=== PATIENT | female | born 1960 | race African-American/Black ===

== ENCOUNTER 2017-09-09 20:01 | Inpatient (IN) | payer OTHER ==
[~2017-09-09] VITALS: Ht 182.9 cm; Wt 60.0 kg
--- NOTE | ~2017-09-09 | H ---
[facility] [place] [address] HISTORY AND PHYSICAL Name: BLANE FUENTES Ko Room #: 437-P ADM IN M.R.#: [id number] Admission: 09/09/17 Attend Phys: Ko Ann Discharge: Date of : 58 Report #: [id number] THIS REPORT FOR: //name// CC: Olivier Urias [facility] physician/PCP DATE OF SERVICE: 09/10/2017 CHIEF COMPLAINT: Abdominal pain. HISTORY OF PRESENT ILLNESS: The patient is a 57-year-old female who is readmitted through the emergency room from [facility] facility for evaluation of right abdominal pain. She was admitted in early August with abdominal pain and was diagnosed with a small bowel obstruction. She had surgical treatment for resection of obstruction along with lysis of adhesions; please see that operative note. Postoperatively, she was transferred to the LT facility for ongoing postop care. Gradually, her mental status is cleared and improved and seems at baseline. However, she has had persistent right upper quadrant and right flank and right posterior rib pain. The pain seems worse when she tries to eat and hence she has not been able to eat anything solid for a month. She had been maintained with TPN. Now, she is describing pain especially in the posterior ribs whenever she takes a deep breath, coughs or even turns to the side. At other times, she will have sharp pain in the right upper quadrant radiating around to the right posterior ribs. CT was obtained at [facility] on September 07 which showed multiple hepatic fluid collections along with some subcapsular fluid. She has been admitted now to rule out a gallbladder process or related hepatic fluid or abscess process as a source of her pain. 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 PAST SURGICAL HISTORY: She has had hysterectomy in 2016. FAMILY HISTORY: Unknown. SOCIAL HISTORY: No known chronic alcohol or tobacco use. ALLERGIES: FENTANYL. MEDICATIONS: Augmentin, DuoNeb, albuterol, metoprolol, lisinopril, Aldactone, Tylenol and Protonix. REVIEW OF SYSTEMS: Other than the pain above, denies headache, visual change, chest pain, shortness of breath, vomiting, diarrhea, constipation, dysuria or [address] [address] HISTORY AND PHYSICAL Name: BLANE FUENTES Room #: 437-P [facility]#: [id number] Admission: 09/09/17 Attend Phys: Ko Ann Discharge: Date of : 58 Report #: [id number] syncope. OBJECTIVE: VITAL SIGNS: Temperature 37, pulse 102, respirations 18, blood pressure 116/82 and O2 sat 99% on room air. GENERAL: She is awake and alert, in no distress. HEAD AND NECK: Unremarkable. LUNGS: Clear. She has palpable tenderness in the right posterior rib. She has pain with deep inspiration. ABDOMEN: Soft, normoactive bowel sounds. She is tender in the right upper quadrant, no rebound. EXTREMITIES: No edema. NEUROLOGIC: She is alert and oriented. Cranial nerves intact. Motor strength intact. LABORATORY DATA: White count is 9, hemoglobin is 9. CMP is unremarkable. RADIOLOGICAL STUDIES: Chest x-ray suggests atelectasis and right pleural effusion. ASSESSMENT: 1. Right upper quadrant abdominal pain. 2. Moderate protein-calorie malnutrition. 3. Anemia of chronic disease. PLAN: At this time, she is admitted for consideration of a gallbladder process versus hepatic abscesses. Ultrasound at the LTAC facility was unremarkable of the gallbladder. I have ordered a HIDA scan. I will also repeat her CT ____ include the chest as if there is worsening fluid collections that may need intervention. I have asked Dr. Alcala to reassess her and Dr. Kevon Urias. Marilee for DVT prophylaxis pending any procedures. <ELECTRONICALLY SIGNED> By: Terry Trimble MD 09/11/17 0917 [id number] [id number] Terry Trimble MD /nt
--- NOTE | ~2017-09-09 | EKG ---
[address] [address] ELECTROCARDIOGRAM REPORT Name: BLANE FUENTES Room #: [facility]#: [id number] Admission: 09/09/17 Attend Phys: Discharge: Date of : 58 Report #: [id number] THIS REPORT FOR: //name// [facility] ED Test Date: 2017-09-09 Test Time: 20:12:56 Pat Name: BLANE FUENTES Department: Room: Gender: F Instrumental Musician: Estefania MAZARIEGOS : 1960 Requested By: Feliciano Barclay Order Number: [id number] MD: Sebas Espino Measurements Intervals [place] Rate: 84 P: 3 MI: 140 QRS: -44 QRSD: 88 T: 31 QT: 382 QTc: 452 Interpretive Statements Sinus rhythm Left anterior fascicular block Compared to ECG 08/17/2017 14:02:31 Left anterior fascicular block now present Sinus tachycardia no longer present Left-axis deviation no longer present Myocardial infarct finding no longer present Early repolarization no longer present Electronically Signed On 09-09-2017 22:00:24 BOARDMARKER by Sebas Espino [email or web address] <ELECTRONICALLY SIGNED> By: Sebas Espino MD 09/09/17 2200 11 11 Sebas Espino MD /EPI
[~2017-09-09 20:01] MED LIST: ACETAMINOPHEN325 M1 PO; ALBUTEROL2.5 MG/0.5 INH; ALDACTONE25 MG PO; AUGMENTIN 875-1 EACH PO; COSOPT OCUMETER10 M1 OPHTHALMIC; DUONEB 2.5-0.5 M3 ML INH; HYDROCHLOROTHIA25 M2 PO; LISINOPRIL20 MG PO; LUMIGAN2.5 M1 OPHTHALMIC; METOPROLOL SUCC50 MG PO; PROTONIX40 M1 PO
[2017-09-09 20:22] VITALS: BP 119/80
[2017-09-09 20:47] LABS: ABSOLUTE NEUTROPHILS 7.8 thou/uL (1.4-8.2); BASOPHILS 0.8 % (0.0-2.0); EOSINOPHILS 1.1 % (0.0-3.0); HEMATOCRIT 27.8 % (37.0-47.0); HEMOGLOBIN 8.9 gm/dL (12.0-15.0); LYMPHOCYTES 11.8 % (24.0-44.0); MANUAL DIFF NO; MCH 26.4 pg (26.0-34.0); MCHC 32.1 g/dL (28.0-37.0); MCV 82.3 fL (80.0-100.0); MONOCYTES 6.4 % (1.0-8.0); PLATELET COUNT 391 thou/uL (150-400); POLYS 79.9 % (36.0-66.0); RBC 3.38 mil/uL (4.20-5.00); RDW 15.2 % (10.5-14.5); WBC 9.8 thou/uL (4.0-11.0)
[2017-09-09 20:55] LABS: ANION GAP 9 mmol/L (7-16); BUN 20 mg/dL (7-18); CALCIUM 9.6 mg/dL (8.5-10.1); CHLORIDE 102 mmol/L (98-107); CO2 26 mmol/L (21-32); CREATININE 0.6 mg/dL (0.6-1.0); GLUCOSE 108 mg/dL (74-106); POTASSIUM 4.4 mmol/L (3.5-5.1); SODIUM 137 mmol/L (136-145)
[2017-09-09 21:04] LABS: ALBUMIN 2.5 g/dL (3.4-5.0); ALKALINE PHOSPHATASE 171 U/L (46-116); SGOT 18 U/L (15-37); SGPT 35 U/L (30-65); TOTAL BILIRUBIN 0.2 mg/dL (<0.1-1.0); TOTAL PROTEIN 8.1 g/dL (6.4-8.2); TROPONIN-I < 0.04 ng/mL (<0.06)
[2017-09-09 23:02] VITALS: BP 133/95
[2017-09-10 00:30] VITALS: BP 134/84
[2017-09-10] MEDS ORDERED: ENOXAPARIN40 MG/0.1 SUBQ (02:00)
[2017-09-10 05:12] VITALS: BP 114/78
[2017-09-10 08:00] VITALS: BP 116/82
[2017-09-10 15:57] VITALS: BP 124/75
[2017-09-10 19:36] VITALS: BP 112/83
[2017-09-11] VITALS (11 sets, daily range): BP systolic 101–159; BP diastolic 37–102
[2017-09-11 03:40] LABS: ALBUMIN 2.1 g/dL (3.4-5.0); CREATININE 0.8 mg/dL (0.6-1.0); TOTAL BILIRUBIN 0.3 mg/dL (<0.1-1.0); TOTAL PROTEIN 6.9 g/dL (6.4-8.2)
[2017-09-11 03:45] LABS: ABSOLUTE NEUTROPHILS 5.4 thou/uL (1.4-8.2); BASOPHILS 1.3 % (0.0-2.0); EOSINOPHILS 1.3 % (0.0-3.0); HEMATOCRIT 25.9 % (37.0-47.0); HEMOGLOBIN 8.2 gm/dL (12.0-15.0); LYMPHOCYTES 24.6 % (24.0-44.0); MCH 26.2 pg (26.0-34.0); MCHC 31.7 g/dL (28.0-37.0); MCV 82.8 fL (80.0-100.0); PLATELET COUNT 338 thou/uL (150-400); POLYS 65.8 % (36.0-66.0); RBC 3.12 mil/uL (4.20-5.00); RDW 15.2 % (10.5-14.5); WBC 8.2 thou/uL (4.0-11.0)
[2017-09-11 03:47] LABS: MANUAL DIFF NO
[2017-09-11 13:45] LABS: APTT 28.7 Seconds (24.5-32.8); INR 1.1; PROTIME 11.4 Seconds (9.3-11.4)
[2017-09-12 03:45] VITALS: BP 114/67
[2017-09-12 06:30] LABS: HEMATOCRIT 26.1 % (37.0-47.0); HEMOGLOBIN 8.2 gm/dL (12.0-15.0); MCH 25.8 pg (26.0-34.0); MCHC 31.2 g/dL (28.0-37.0); MCV 82.7 fL (80.0-100.0); RBC 3.16 mil/uL (4.20-5.00); RDW 15.3 % (10.5-14.5)
[2017-09-12 06:39] LABS: POTASSIUM 4.3 mmol/L (3.5-5.1)
[2017-09-12 06:46] LABS: WBC 23.2 thou/uL (4.0-11.0)
[2017-09-12 08:06] VITALS: BP 127/77
[2017-09-12 16:03] VITALS: BP 111/75
[2017-09-12 19:30] VITALS: BP 105/64
[2017-09-13 03:30] VITALS: BP 116/75
[2017-09-13 04:30] LABS: HEMATOCRIT 25.4 % (37.0-47.0); HEMOGLOBIN 7.9 gm/dL (12.0-15.0); MCH 25.7 pg (26.0-34.0); MCHC 31.3 g/dL (28.0-37.0); MCV 82.1 fL (80.0-100.0); PLATELET COUNT 277 thou/uL (150-400); RBC 3.09 mil/uL (4.20-5.00); RDW 15.1 % (10.5-14.5); WBC 11.5 thou/uL (4.0-11.0)
[2017-09-13 04:33] LABS: MANUAL DIFF YES
[2017-09-13 04:43] LABS: CALCIUM 8.9 mg/dL (8.5-10.1); CREATININE 1.1 mg/dL (0.6-1.0); POTASSIUM 3.8 mmol/L (3.5-5.1)
[2017-09-13 05:42] LABS: ABSOLUTE NEUTROPHILS 10.6 thou/uL (1.4-8.2); TOTAL CELL COUNT 100
[2017-09-13 07:57] VITALS: BP 120/81
[2017-09-13 15:49] VITALS: BP 119/67
[2017-09-13 19:27] VITALS: BP 121/86
[2017-09-14 04:14] VITALS: BP 121/87
[2017-09-14 06:35] LABS: HEMATOCRIT 24.8 % (37.0-47.0); HEMOGLOBIN 7.8 gm/dL (12.0-15.0); MCH 26.2 pg (26.0-34.0); MCHC 31.7 g/dL (28.0-37.0); MCV 82.8 fL (80.0-100.0); RBC 2.99 mil/uL (4.20-5.00); RDW 15.6 % (10.5-14.5); WBC 6.1 thou/uL (4.0-11.0)
[2017-09-14 06:41] LABS: CALCIUM 8.6 mg/dL (8.5-10.1); POTASSIUM 3.8 mmol/L (3.5-5.1)
[2017-09-14 07:15] VITALS: BP 125/90
[2017-09-14] MEDS ORDERED: ACETAMINOPHEN325 M1 PO (12:34)
[2017-09-14] MEDS ORDERED: MOBIC15 MG PO (12:34)
[2017-09-14] MEDS ORDERED: DILAUDID1 MG/1 ML IV PUSH (12:34)
[2017-09-14] MEDS ORDERED: LIDOPATCH1 EACH TRANSDERM (12:35)
[2017-09-14] MEDS ORDERED: PROTONIX 20 MG20 M1 PO (12:35)
[2017-09-14] MEDS ORDERED: ONDANSETRON HCL4 M1 IV PUSH (12:35)
[2017-09-14] MEDS ORDERED: LACTULOSE20 GM/30 M PO (12:35)
[2017-09-14] MEDS ORDERED: MIRALAX17 GM PO (12:35)
[2017-09-14] MEDS ORDERED: ZOSYN 3.3753.375 GM IV (12:36)
[2017-09-14 16:35] VITALS: BP 151/91
== END 2017-09-14 19:28 | DRG 441 ==
LOC: ER 20:01 → 4S 22:20 → EROBS 22:20 → 4S 22:45
PROVIDERS: Emergency Medicine; Internal Medicine Geriatric Medicine; Surgery
PROC: 02HV33Z Insertion of Infusion Device into Superior Vena Cava, Percutaneous Approach (ICD-10-PCS; principal; 2017-09-09)
PROC: 0F9130Z Drainage of Right Lobe Liver with Drainage Device, Percutaneous Approach (ICD-10-PCS; 2017-09-11)
DX: K75.0 Abscess of liver (principal); E43 Unspecified severe protein-calorie malnutrition; R18.8 Other ascites; J90 Pleural effusion, not elsewhere classified; Z68.1 Body mass index [BMI] 19.9 or less, adult; D63.8 Anemia in other chronic diseases classified elsewhere; F41.9 Anxiety disorder, unspecified; I10 Essential (primary) hypertension; H40.9 Unspecified glaucoma; Z79.899 Other long term (current) drug therapy; Z90.710 Acquired absence of both cervix and uterus; Z88.8 Allergy status to other drugs, medicaments and biological substances; Z98.41 Cataract extraction status, right eye
CPT/HCPCS: 10195